=== PATIENT | female | born 1955 | race Caucasian/White ===

== ENCOUNTER 2017-07-15 12:59 | Emergency (ER) | payer OTHER ==
[2017-07-15 13:40] VITALS: BP 116/69; PULSE 75; TEMP 98.1; BMI 33.8
[2017-07-15] MEDS ORDERED: KETOROLAC TROMETHAMINE 15 MG/ML VIAL IVPUSH ONE (13:43)
[2017-07-15] MEDS ORDERED: KETOROLAC TROMETHAMINE 15 MG/ML VIAL ONE (14:01)
--- NOTE | 2017-07-15 14:04 | PDOC ---
History of Present Illness - General Chief Complaint: Pain, Acute Stated Complaint: LEG PAIN Time Seen by Provider: 07/15/17 13:26 - History of Present Illness Initial Comments: 07/15/17 13:59 "The patient is a 62 year old female, with a significant past medical history of hypertension, hyperlipidemia, NIDDM, rheumatoid arthritis, and migraines, who presents to the emergency department with right hip pain extending from her right buttock to her right inguinal region. Pt states that she fell a month ago. She was evaluated at the hospital and had X rays that were negative. However, since then, she has had intermittent pain in her R hip. She denies any recent trauma or falls. States that her L knee was bothering her more initially , but as she favored that side, she began to develop pain in her R hip. States that the pain shoots from her R buttock down to her R thigh. Denies back pain. Denies abdominal pain. Denies numbness/tingling/weakness. She reportedly took plaquenil at home with no relief of her pain. She denies chest pain, shortness of breath, headache and dizziness. She denies fever, chills, nausea, vomit, diarrhea and constipation. She denies dysuria, frequency, urgency and hematuria. Allergies: " Past History - Past Medical History Allergies/Adverse Reactions: Allergies Allergy/AdvReac Type Severity Reaction Status Date / Time No Known Allergies Allergy Verified 07/15/17 13:40 Home Medications: Ambulatory Orders Aspirin [ASA -] 81 mg PO DAILY 09/21/14 Glipizide [Glucotrol] 40 mg PO DAILY 09/21/14 Lisinopril [Prinivil] 10 mg PO DAILY 09/21/14 Metformin HCl [Glucophage -] 500 mg PO DAILY 09/21/14 Sitagliptin Phosphate [Januvia] 25 mg PO DAILY 09/21/14 Tramadol HCl/Acetaminophen [Tramadol-Acetaminophn 37.5-325] 1 each PO BID PRN # 10 tablet MDD 2 tabs 07/15/17 COPD: No Diabetes: Yes (NIDDM) HTN: Yes Hypercholesterolemia: Yes - Surgical History Appendectomy: Yes - Suicide/Smoking/Psychosocial Hx Smoking History: Unknown if ever smoked Have you smoked in the past 12 months: No Information on smoking cessation initiated: No Hx Alcohol Use: No Drug/Substance Use Hx: No Substance Use Type: None Review of Systems - Review of Systems Comments:: 07/15/17 14:02 """GENERAL/CONSTITUTIONAL: No fever or chills. No weakness. HEAD, EYES, EARS, NOSE AND THROAT: No change in vision. No ear pain or discharge. No sore throat. CARDIOVASCULAR: No chest pain or shortness of breath. RESPIRATORY: No cough, wheezing, or hemoptysis. GASTROINTESTINAL: No nausea, vomiting, diarrhea or constipation. GENITOURINARY: No dysuria, frequency, or change in urination. MUSCULOSKELETAL: (+) right hip, buttock and groin pain. No joint or muscle swelling. No neck or back pain. SKIN: No rash NEUROLOGIC: No headache, vertigo, loss of consciousness, or change in strength/ sensation. ENDOCRINE: No increased thirst. No abnormal weight change. HEMATOLOGIC/LYMPHATIC: No anemia, easy bleeding, or history of blood clots. ALLERGIC/IMMUNOLOGIC: No hives or skin allergy. """ *Physical Exam - Vital Signs Last Vital Signs Temp Pulse Resp BP Pulse Ox 98.1 F 75 18 116/69 100 07/15/17 12:59 07/15/17 12:59 07/15/17 12:59 07/15/17 12:59 07/15/17 12:59 - Physical Exam Comments: 07/15/17 14:02 "GENERAL: Awake, alert, and fully oriented, in no acute distress HEAD: No signs of trauma EYES: PERRLA, EOMI, sclera anicteric, conjunctiva clear ENT: Auricles normal inspection, hearing grossly normal, nares patent, oropharynx clear without exudates. Moist mucosa NECK: Nontender, no stepoffs, Normal ROM, supple, no lymphadenopathy, JVD, or masses LUNGS: Breath sounds equal, clear to auscultation bilaterally. No wheezes, and no crackles HEART: Regular rate and rhythm, normal S1 and S2, no murmurs, rubs or gallops ABDOMEN: Soft, nontender, normoactive bowel sounds. No guarding, no rebound. No masses EXTREMITIES: R hip with no bony tenderness, ROM limited 2/2 pain, RLE without swelling NEUROLOGICAL: Cranial nerves II through XII intact. 5/5 strength and sensation in all extremities, Normal speech, normal gait SKIN: Warm, Dry, normal turgor, no rashes or lesions noted. " ED Treatment Course - LABORATORY CBC & Chemistry Diagram: 07/15/17 13:58 07/15/17 13:58 - RADIOLOGY Radiology Studies Ordered: Category Date Time Status PELVIS CT WITHOUT CONTRAST [CT] Stat CT Scan 07/15/17 13:42 Ordered DUPLEX VASCUL US-1 LEG [US] Stat Ultrasound 07/15/17 13:43 Ordered Medical Decision Making - Medical Decision Making 07/15/17 14:03 62 F with atraumatic R hip pain. Likely bursitis vs sciatic nerve pain. Pt had L knee pain initially after falling 1 month ago and subsequently developed pain in the R hip. Pain likely 2/2 overuse from favoring her L knee. Pt with no fever , no evidence of septic arthritis (able to range it passively and bear weight). - CT pelvis to r/o fx - RLE doppler - NSAIDs 07/15/17 19:18 CT and US negative for acute pathology. Pt reassessed - now with some improvement in pain s/p toradol. Pt ambulatory with assistance. Well appearing, vitals normal, clinically stable for DC. *DC/Admit/Observation/Transfer Diagnosis at time of Disposition: Hip pain - Discharge Dispostion Disposition: HOME - Referrals - Patient Instructions Printed Discharge Instructions: DI for Hip Bursitis Additional Instructions: Your CT scan and ultrasound were normal today. If you experience worsening pain, fevers, or difficulty walking, return to the ER immediately. Otherwise, follow up with your primary doctor tomorrow. - Post Discharge Activity - Attestations Physician Attestion: 07/15/17 19:23 I, Dr. Corenlius Mclaughlin MD, attest that this document has been prepared under my direction and personally reviewed by me in its entirety. I further attest, that it accurately reflects all work, treatment, procedures and medical decision -making performed by me.
[2017-07-15 14:34] LABS: BASO % 1.3 % (0-2.0); EOS % 1.3 % (0-4.5); HEMATOCRIT 40.7 % (32.4-45.2); HEMOGLOBIN 12.9 GM/dL (10.7-15.3); LYMPH % 11.2 % (8-40); MCH 25.3 pg (25.7-33.7); MCHC 31.6 g/dl (32.0-36.0); MEAN PLT VOLUME 8.3 fl (7.5-11.1); MONO % 6.6 % (3.8-10.2); NEUT % 79.6 % (42.8-82.8); PLATELET COUNT 235 K/MM3 (134-434); RBC 5.09 M/mm3 (3.60-5.2); RDW 13.3 % (11.6-15.6); WHITE BLOOD COUNT 9.1 K/mm3 (4.0-10.0)
[2017-07-15 15:16] LABS: ALBUMIN 3.3 g/dl (3.4-5.0); ALK PHOS 123 U/L (45-117); ANION GAP 10 (8-16); BILIRUBIN,TOTAL 0.5 mg/dL (0.2-1.0); BLOOD UREA NITROGEN 17 mg/dL (7-18); CALCIUM 8.7 mg/dL (8.5-10.1); CHLORIDE 108 mmol/L (98-107); CO2 24 mmol/L (21-32); CREATININE 0.4 mg/dL (0.55-1.02); GLUCOSE,RANDOM 106 mg/dL (74-106); SGPT/ALT 32 U/L (12-78); SODIUM 142 mmol/L (136-145); TOT PROT 7.3 g/dl (6.4-8.2)
[2017-07-15 15:54] LABS: POTASSIUM 4.7 mmol/L (3.5-5.1); SGOT/AST 38 U/L (15-37)
== END 2017-07-15 19:48 | disposition home or self-care (01) ==
LOC: JER 12:59
PROC: 3E0333Z Introduction of Anti-inflammatory into Peripheral Vein, Percutaneous Approach (ICD-10-PCS; principal; 2017-07-15)
DX: M25.551 Pain in right hip (principal); I10 Essential (primary) hypertension; E78.00 Pure hypercholesterolemia, unspecified; E11.9 Type 2 diabetes mellitus without complications; Z79.84 Long term (current) use of oral hypoglycemic drugs
CPT/HCPCS: 36415; 73700-TC-RT; 80053; 85025; 93971-TC; 96374; 99282-25

== ENCOUNTER 2021-01-31 13:43 | Emergency (ER) | payer OTHER ==
[2021-01-31 13:48] VITALS: BP 138/83; PULSE 82; TEMP 98; BMI 37.0
[2021-01-31] MEDS ORDERED: ACETAMINOPHEN 500 MG TABLET (FP) PO ONE (14:23)
[2021-01-31] MEDS ORDERED: ACETAMINOPHEN 500 MG TABLET (FP) ONE (14:26)
[2021-01-31 14:44] LABS: PH,URINE 5.5 (5.0-8.0); URINE APPEARANCE CLEAR; URINE BILIRUBIN NEGATIVE (NEGATIVE); URINE COLOR YELLOW; URINE GLUCOSE (UA) NEGATIVE (NEGATIVE); URINE KETONE NEGATIVE (NEGATIVE); URINE LEUK ESTERASE NEGATIVE (NEGATIVE); URINE NITRITE NEGATIVE (NEGATIVE); URINE PROTEIN NEGATIVE (NEGATIVE); URINE UROBILINOGEN 0.2 mg/dL (0.2-1.0)
== END 2021-01-31 15:10 | disposition home or self-care (01) ==
LOC: JERFT 13:43
DX: M54.31 Sciatica, right side (principal)
CPT/HCPCS: 81003; 87086; 99283-25

== ENCOUNTER 2023-05-30 11:47 | Emergency (ER) | payer OTHER ==
[2023-05-30] MEDS ORDERED: OXYMETAZOLINE 0.05% NASAL SOLUTION 15 ML BOTTLE NS ONE (11:53)
[2023-05-30] MEDS ORDERED: TRANEXAMIC ACID 1000 MG/10 ML VIAL IVPUSH ONE (11:53)
[2023-05-30] MEDS ORDERED: TRANEXAMIC ACID 1000 MG/10 ML VIAL ONE (12:07)
[2023-05-30 12:10] VITALS: RESP 18; BMI 35.5
[2023-05-30 13:25] LABS: BASO % 0.7 % (0-2.0); EOS % 2.7 % (0-4.5); HEMATOCRIT 39.6 % (32.4-45.2); HEMOGLOBIN 12.7 GM/dL (10.7-15.3); LYMPH % 34.5 % (8-40); MCH 26.9 pg (25.7-33.7); MCHC 32.1 g/dl (32.0-36.0); MEAN CELL VOLUME 83.6 fl (80-96); MEAN PLT VOLUME 8.3 fl (7.5-11.1); MONO % 6.2 % (3.8-10.2); NEUT % 55.9 % (42.8-82.8); PLATELET COUNT 266 10^3/uL (134-434); RBC 4.74 M/mm3 (3.60-5.2); RDW 14.1 % (11.6-15.6)
[2023-05-30 13:28] LABS: INR 1.12 (0.83-1.09)
[2023-05-30] MEDS ORDERED: ONDANSETRON 4 MG/2 ML VIAL IVPUSH ONE (13:46)
[2023-05-30] MEDS ORDERED: ONDANSETRON 4 MG/2 ML VIAL ONE (13:47)
[2023-05-30] MEDS ORDERED: SODIUM CHLORIDE 0.9% 500 ML INFUS.BAG IV ONE (14:44)
[2023-05-30 14:48] VITALS: PULSE 76; TEMP 98.1
[2023-05-30 15:31] VITALS: BP 110/60
== END 2023-05-30 16:28 | disposition home or self-care (01) ==
LOC: JER 11:47
PROC: 093K7ZZ Control Bleeding in Nasal Mucosa and Soft Tissue, Via Natural or Artificial Opening (ICD-10-PCS; principal; 2023-05-30)
PROC: 3E033GC Introduction of Other Therapeutic Substance into Peripheral Vein, Percutaneous Approach (ICD-10-PCS; 2023-05-30)
PROC: 3E033GC Introduction of Other Therapeutic Substance into Peripheral Vein, Percutaneous Approach (ICD-10-PCS; 2023-05-30)
DX: R04.0 Epistaxis (principal)
CPT/HCPCS: 36415; 82962; 85025; 85610; 85730; 93005; 93010; 99284-25